=== PATIENT | female | born 1935 | race Caucasian/White ===

== ENCOUNTER 2017-02-11 03:02 | Emergency (ER) | payer MEDICARE ==
--- NOTE | 2017-02-11 03:47 | EDM.PDOC ---
ED HPI GENERAL MEDICAL PROBLEM - General Chief Complaint: Respiratory Problem Stated Complaint: [facility] Time Seen by Provider: 02/11/17 03:07 Source of Information: Reports: Patient, Family (), RN Notes Reviewed History Limitations: Reports: No Limitations - History of Present Illness INITIAL COMMENTS - FREE TEXT/NARRATIVE: The patient states that she has had a cough productive of yellowish sputum since 01/27/2017. She reports only slight dyspnea at rest and slight dyspnea on exertion. She reports slight wheezing. No recent fever. She is mainly concerned because the cough keeps her awake at night. She saw her PCP, Dr. Hernandez, on , 02/03/2017. She states her bloodwork was obtained, but she was diagnosed with a viral illness and no treatment was prescribed. She states that she has been taking [id number] Coricidin, recommended to her by a pharmacist. Since starting this, however, she notes that the mucus in her throat feels to be a thick, and she has difficulty bringing it up. The patient also reports feeling lightheaded for the past 7 days. The patient does not get influenza vaccines. - Related Data Allergies Allergy/AdvReac Type Severity Reaction Status Date / Time No Known Allergies Allergy Verified 02/11/17 03:05 Home Meds: Home Meds Antiox#10/Om3/DHA/EPA/Lut/Zeax [I-Caps with Lutein-[place] 3 SFG] 1 cap PO DAILY 02/11/17 [History] Aspirin [Halfprin] 81 mg PO BRK 02/11/17 [History] Calcium Carbonate/Vitamin D3 [Caltrate 600 Plus D3 Tablet] 1 cap PO DAILY [History] Indapamide 1.25 mg PO DAILY 02/11/17 [History] Labetalol HCl [Labetalol] 200 mg PO BID 02/11/17 [History] Levothyroxine 112 mcg PO ACBREAKFAST 02/11/17 [History] Loperamide HCl [Anti-Diarrheal] 2 mg PO ASDIRECTED PRN 02/11/17 [History] Losartan [Cozaar] 100 mg PO DAILY 02/11/17 [History] Multivits-Min/Iron/FA/Lutein [Centrum Silver Women Tablet] 1 each PO DAILY 02/11 [History] Omeprazole 20 mg PO DAILY 02/11/17 [History] glipiZIDE [Glucotrol XL] 5 mg PO BIDD 02/11/17 [History] Past Medical History HEENT History: Reports: Macular Degeneration Cardiovascular History: Reports: Hypertension Gastrointestinal History: Reports: GERD Genitourinary History: Reports: Urinary Incontinence (Stress incontinence) 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: Musculoskeletal History: Reports: Osteoarthritis Endocrine/Metabolic History: Reports: Diabetes, Type II, Hypothyroidism ( following thyroidectomy) Oncologic (Cancer) History: Reports: Thyroid - Past Surgical History GI Surgical History: Reports: Appendectomy Female Surgical History: Reports: Hysterectomy Endocrine Surgical History: Reports: Thyroidectomy Musculoskeletal Surgical History: Reports: Hip Replacement (left) Social & Family History - Tobacco Use Smoking Status *Q: Former Smoker Years of Tobacco use: 21 Packs/Tins Daily: 1 Month Tobacco Last Used: Quit 1981 Second Hand Smoke Exposure: No - Caffeine Use Caffeine Use: Reports: Soda - Alcohol Use Alcohol Use History: No - Recreational Drug Use Recreational Drug Use: No - Living Situation & Occupation Living situation: Reports: , with Spouse Occupation: Retired ED ROS GENERAL - Review of Systems Review Of Systems: ROS reveals no pertinent complaints other than HPI. Constitutional: Reports: No Symptoms HEENT: Reports: No Symptoms Respiratory: Reports: No Symptoms Cardiovascular: Reports: No Symptoms Endocrine: Reports: No Symptoms GI/Abdominal: Reports: No Symptoms : Reports: No Symptoms Musculoskeletal: Reports: No Symptoms Skin: Reports: No Symptoms Neurological: Reports: No Symptoms Psychiatric: Reports: No Symptoms Hematologic/Lymphatic: Reports: No Symptoms Immunologic: Reports: No Symptoms ED EXAM, GENERAL - Physical Exam Exam: See Below Exam Limited By: No Limitations General Appearance: Alert, WD/WN, No Apparent Distress Eye Exam: Bilateral Eye: Normal Inspection Ears: Normal External Exam, Hearing Grossly Normal Nose: Normal Inspection, No Blood Throat/Mouth: Normal Inspection, Normal Lips, Normal Voice, No Airway Compromise Head: Atraumatic, Normocephalic Neck: Normal Inspection, Full Range of Motion Respiratory/Chest: No Respiratory Distress, No Accessory Muscle Use, Rhonchi ( scattered) Cardiovascular: Normal Peripheral Pulses, Regular Rate, Rhythm, No Gallop, No JVD, No Murmur, No Rub Peripheral Pulses: 4+: Radial (L), Radial (R) GI/Abdominal: Normal Bowel Sounds, Soft, Non-Tender, No Organomegaly, No Distention, No Abnormal Bruit, No Mass (Female) Exam: Deferred Rectal (Female) Exam: Normal Exam, Normal Rectal Tone, Heme - Stool (light brown , liquidy) Back Exam: Normal Inspection, Full Range of Motion. No: CVA Tenderness (L), CVA Tenderness (R) Extremities: Normal Inspection, Normal Range of Motion, No Pedal Edema, Normal Capillary Refill Neurological: Alert, Oriented, Normal Cognition, No Motor/Sensory Deficits Psychiatric: Normal Affect Skin Exam: Warm, Dry, Intact, Normal Color, No Rash Course - Vital Signs Last Recorded V/S: Last Vital Signs Temp 36.3 C 02/11/17 03:03 Pulse 82 02/11/17 03:03 Resp 15 02/11/17 03:03 BP 124/61 02/11/17 03:03 Pulse Ox 95 02/11/17 03:03 Orthostatic Blood Pressure [ 119/43 Standing] Orthostatic Blood Pressure [ 98/55 Sitting] Orthostatic Blood Pressure [ 136/33 Supine] - Orders/Labs/Meds Orders: Active Orders 24 hr Category Date Time Status Hemoccult [Fecal Occult Blood Collection] [RC] Care 02/11/17 04:56 Active ASDIRECTED Orthostatic Vital Signs [RC] STAT Care 02/11/17 03:49 Active Orthostatic Vital Signs [RC] STAT Care 02/11/17 05:56 Active CULTURE BLOOD [BC] Stat Lab 02/11/17 06:30 Received CULTURE BLOOD [BC] Stat Lab 02/11/17 06:38 Received Levothyroxine Med 02/11/17 08:03 Once 112 mcg PO ONETIME ONE Blood Culture x2 Reflex Set [OM.PC] Stat Oth 02/11/17 05:57 Ordered Medication Orders Levothyroxine Sodium (Levothyroxine) 112 mcg PO ONETIME ONE Stop: 02/11/17 08:04 Labs: Laboratory Tests 02/11/17 02/11/17 02/11/17 Range/Units 04:10 04:10 04:10 WBC 12.20 H (3.98-10.04) K/mm3 RBC 2.03 L (3.98-5.22) M/mm3 Hgb 6.2 L* (11.2-15.7) gm/L Hct 20.8 L (34.1-44.9) % MCV 102.5 H (79.4-94.8) fl MCH 30.5 (25.6-32.2) pg MCHC 29.8 L (32.2-35.5) g/dl RDW Std Deviation 52.4 H (36.4-46.3) fL Plt Count 407 H (182-369) K/mm3 MPV 8.3 L (9.4-12.3) fl Neutrophils % (Manual) 90 H (40-60) % Band Neutrophils % 1 (0-10) % Lymphocytes % (Manual) 3 L (20-40) % Atypical Lymphs % 0 % Monocytes % (Manual) 5 (2-10) % Eosinophils % (Manual) 1 (0.7-5.8) % Basophils % (Manual) 0 L (0.1-1.2) Platelet Estimate Increased Plt Morphology Comment Normal Polychromasia 1+ slight Hypochromasia 1+ slight Poikilocytosis 2+ moderate Anisocytosis 2+ moderate Microcytosis 1+ slight Macrocytosis 2+ moderate Ovalocytes 1+ slight RBC Morph Comment Abnormal Percent Retic (0.50-1.70) % Sodium 135 L (136-145) mEq/L Potassium 5.1 (3.5-5.1) mEq/L Chloride 101 (98-107) mEq/L Carbon Dioxide 23 (21-32) mEq/L Anion Gap 16.1 H (5-15) BUN 28 H (7-18) mg/dL Creatinine 1.6 H (0.55-1.02) mg/dL Est Cr Clr Drug Dosing 25.65 mL/min Estimated GFR (MDRD) 31 (>60) mL/min BUN/Creatinine Ratio 17.5 (14-18) Glucose 178 H (83-115) mg/dL Calcium 8.6 (8.5-10.1) mg/dL Iron (50-170) ug/dL TIBC (100-400) ug/dL % Saturation (20-55) % Transferrin (202-364) mg/dL Ferritin (8-252) ng/ml Total Bilirubin 1.1 H (0.2-1.0) mg/dL AST 26 (15-37) U/L ALT 39 (14-59) U/L Alkaline Phosphatase 188 H (46-116) U/L Lactate Dehydrogenase 239 H (81-234) U/L Total Protein 6.6 (6.4-8.2) g/dl Albumin 2.8 L (3.4-5.0) g/dl Globulin 3.8 gm/dL Albumin/Globulin Ratio 0.7 L (1-2) Vitamin B12 (193-986) pg/ml Folate (8.6-58.9) ng/mL 02/11/17 02/11/17 Range/Units 04:10 04:10 WBC (3.98-10.04) K/mm3 RBC (3.98-5.22) M/mm3 Hgb (11.2-15.7) gm/L Hct (34.1-44.9) % MCV (79.4-94.8) fl MCH (25.6-32.2) pg MCHC (32.2-35.5) g/dl RDW Std Deviation (36.4-46.3) fL Plt Count (182-369) K/mm3 MPV (9.4-12.3) fl Neutrophils % (Manual) (40-60) % Band Neutrophils % (0-10) % Lymphocytes % (Manual) (20-40) % Atypical Lymphs % % Monocytes % (Manual) (2-10) % Eosinophils % (Manual) (0.7-5.8) % Basophils % (Manual) (0.1-1.2) Platelet Estimate Plt Morphology Comment Polychromasia Hypochromasia Poikilocytosis Anisocytosis Microcytosis Macrocytosis Ovalocytes RBC Morph Comment Percent Retic 2.74 H (0.50-1.70) % Sodium (136-145) mEq/L Potassium (3.5-5.1) mEq/L Chloride (98-107) mEq/L Carbon Dioxide (21-32) mEq/L Anion Gap (5-15) BUN (7-18) mg/dL Creatinine (0.55-1.02) mg/dL Est Cr Clr Drug Dosing mL/min Estimated GFR (MDRD) (>60) mL/min BUN/Creatinine Ratio (14-18) Glucose (83-115) mg/dL Calcium (8.5-10.1) mg/dL Iron 19 L (50-170) ug/dL TIBC 214 (100-400) ug/dL % Saturation 9 L (20-55) % Transferrin 171 L (202-364) mg/dL Ferritin 322 H (8-252) ng/ml Total Bilirubin (0.2-1.0) mg/dL AST (15-37) U/L ALT (14-59) U/L Alkaline Phosphatase (46-116) U/L Lactate Dehydrogenase (81-234) U/L Total Protein (6.4-8.2) g/dl Albumin (3.4-5.0) g/dl Globulin gm/dL Albumin/Globulin Ratio (1-2) Vitamin B12 1204 H (193-986) pg/ml Folate 24.1 (8.6-58.9) ng/mL Meds: Medications Generic Name Dose Route Start Last Admin Trade Name Freq PRN Reason Stop Dose Admin Levothyroxine Sodium 112 mcg 02/11/17 08:03 Levothyroxine PO 02/11/17 08:04 ONETIME ONE Discontinued Medications Generic Name Dose Route Start Last Admin Trade Name Freq PRN Reason Stop Dose Admin Sodium Chloride 1,000 mls @ 999 mls/hr 02/11/17 04:21 02/11/17 05:04 Normal Saline IV 02/11/17 05:21 999 mls/hr ONETIME ONE Administration Levofloxacin 750 mg 02/11/17 05:52 02/11/17 06:41 Levaquin PO 02/11/17 05:53 750 mg ONETIME STA Administration - Re-Assessments/Exams Free Text/Narrative Re-Assessment/Exam: 02/11/17 04:20 The patient's systolic blood pressure dropped by 20 mmHg between supine and standing, consistent with orthostasis. I will order 1 L normal saline bolus and recheck her orthostatics. 02/11/17 04:55 The patient's H/H has returned significantly depressed at 6.2/20.8. This was discussed with the patient. She states that she is aware that she is anemic, and that Dr. Hernandez has referred her to a Marketing Production Coordinator in [place]. She also mentions that she is adamant that she does not want to undergo a colonoscopy ever again. Based on the patient's low H/H, I performed a rectal examination, finding heme- negative stool. The patient's anemia is macrocytic and hypochromic, likely multifactorial. I have ordered an LDH, iron level, ferritin, TIBC, transferrin, iron saturation, reticulocyte count, folic acid level, and a vitamin B12 level, for further evaluation of the patient's anemia. I offered to transfuse PRBCs, however, the patient feels that the risk of transfusion outweighs the potential benefit, despite my reassurances to the contrary. She is refusing PRBC transfusion at this time. 02/11/17 04:58 Two-view chest radiograph reviewed. Cardiac silhouette is within normal limits. No pulmonary vascular congestion. No pleural effusions. There appears to be a left lower lobe infiltrate, however, malignancy cannot be excluded. No pneumothorax. Formal read per the Radiologist pending. 02/11/17 05:53 The patient's WBC count is mildly elevated at 12.20, although she only has 1% bandemia. Her chest radiograph, as above, indicates a left lower lobe infiltrate , although malignancy cannot be excluded. Current guidelines recommend treatment with an antibiotic, followed by repeat chest radiograph in approximately one month. If the infiltrate has not resolved, a high-resolution CT scan would be indicated. I have ordered Levaquin 750 mg po, with the intention of prescribing a five-day course. Blood cultures will be drawn prior to administration of the antibiotic. 02/11/17 07:00 The anemia studies indicate that the patient has significant iron deficiency, although her folic acid and vitamin B12 levels are adequate or even elevated. Iron deficiency would explain the patient's hypochromic, but not the macrocytosis, although this could be due to reticulocytosis. Despite an elevated reticulocyte count, however, the patient's reticulocyte index is depressed at 0.6%. This could be due to iron deficiency, although is likely contributed at least in part by the patient's renal insufficiency with resultant low erythropoietin. For today's purposes, I'm going to recommend that the patient start taking supplemental iron with vitamin C (to improve gastrointestinal absorption). I will encourage her to keep her appointment with the Marketing Production Coordinator. 02/11/17 07:04 Repeat orthostatics following 1 L NS are normal - the patient is no longer orthostatic. Today's workup finds that the patient has left lower lobe pneumonia, renal insufficiency (unknown if acute or chronic), and severe iron-deficient anemia. She appears to be very unsteady when ambulating to and from the bathroom, and her confirms that she has fallen at home. I'm therefore recommending admission to the hospital for further evaluation and treatment. 02/11/17 07:28 The above was discussed with the patient and her . The patient refuses to be admitted to this hospital, stating that her mother was admitted to this facility from a [facility], and found to be black and blue on one side. It was unclear if the bruises were from the [facility] or this facility, but the patient decided long ago that she would never be admitted here. The patient is, however, agreeable to being admitted to [facility]. She states that she was been admitted there previously, for her left total hip arthroplasty. Because the transfer would be for patient choice as opposed to medical necessity , she would have to pay for transfer cost, however, I do not object to the patient's driving the patient, if she is accepted. 02/11/17 07:[address] Iraheta, Hospitalist at [facility], at 07:35. He agrees to directly admit the patient. I will push the chest radiograph images. 02/11/17 07:49 The patient's states that he got only 2 hours of sleep last night. He spoke with his , and they have decided to pay for an ambulance to transfer her to [facility]. We will let [facility] know. Departure - Departure Time of Disposition: 07:45 Disposition: DC/Tfer to Acute Hospital 02 Condition: Fair Clinical Impression: Left lower lobe pneumonia, Severe anemia, Renal insufficiency, Orthostatic hypotension - Discharge Information Referrals: Paul Cole MD [Primary Care Provider] - - My Orders Last 24 Hours: My Active Orders 02/11/17 03:49 Orthostatic Vital Signs [RC] STAT 02/11/17 04:56 Hemoccult [Fecal Occult Blood Collection] [RC] ASDIRECTED 02/11/17 05:56 Orthostatic Vital Signs [RC] STAT 02/11/17 05:57 Blood Culture x2 Reflex Set [OM.PC] Stat 02/11/17 06:30 CULTURE BLOOD [BC] Stat 02/11/17 06:38 CULTURE BLOOD [BC] Stat 02/11/17 08:03 Levothyroxine 112 mcg PO ONETIME ONE - Assessment/Plan Last 24 Hours: My Active Orders 02/11/17 03:49 Orthostatic Vital Signs [RC] STAT 02/11/17 04:56 Hemoccult [Fecal Occult Blood Collection] [RC] ASDIRECTED 02/11/17 05:56 Orthostatic Vital Signs [RC] STAT 02/11/17 05:57 Blood Culture x2 Reflex Set [OM.PC] Stat 02/11/17 06:30 CULTURE BLOOD [BC] Stat 02/11/17 06:38 CULTURE BLOOD [BC] Stat 02/11/17 08:03 Levothyroxine 112 mcg PO ONETIME ONE
[2017-02-11] MEDS ORDERED: Sodium Chloride 0.9% 1,000 ML IV ONE (04:21)
[2017-02-11] MEDS ORDERED: Levofloxacin 750 MG Tab PO STA (05:52)
--- NOTE | 2017-02-11 07:40 | CR ---
Chest: Two views of the chest were obtained. Comparison: Prior chest CT of 04/19/12, no prior chest x-ray. Patchy areas of increased density are identified within the left mid and lower lung. Right lung is clear. Heart size at the upper limits of normal. Atherosclerotic change is seen within the aortic knob. Bony structures show mild degenerative change which is scattered within the spine. Impression: 1. Patchy areas of increased density within the left chest which are suspicious for pneumonia. Please correlate. Diagnostic code #3
[2017-02-11] MEDS ORDERED: Levothyroxine 112 MCG Tab PO ONE (08:03)
== END 2017-02-11 08:48 ==
LOC: JD.ED 03:02
DX: J18.9 Pneumonia, unspecified organism (principal); D64.9 Anemia, unspecified; I95.1 Orthostatic hypotension; N28.9 Disorder of kidney and ureter, unspecified; I10 Essential (primary) hypertension; K21.9 Gastro-esophageal reflux disease without esophagitis; E11.9 Type 2 diabetes mellitus without complications; E03.9 Hypothyroidism, unspecified; Z87.891 Personal history of nicotine dependence; Z79.84 Long term (current) use of oral hypoglycemic drugs; Z79.82 Long term (current) use of aspirin; Z79.899 Other long term (current) drug therapy
CPT/HCPCS: 36415; 71020; 80053; 82270; 82607; 82728; 82746; 83540; 83615; 84466; 85025; 85045; 87040; 87804; 96360; 96361; 99285; A9270; J7040

== ENCOUNTER 2019-09-18 00:36 | Emergency (ER) | payer MEDICARE ==
[2019-09-18] MEDS ORDERED: Alum Hydrox/Mag Hydrox/Simeth 30 ML, Lidocaine 2% 15 ML PO STA ×2 (01:06)
--- NOTE | 2019-09-18 01:11 | EDM.PDOC ---
ED HPI GENERAL MEDICAL PROBLEM - General Chief Complaint: Abdominal Pain Stated Complaint: CHEST/ABDOMINAL PAIN Time Seen by Provider: 09/18/19 00:49 Source of Information: Reports: Patient, Family () History Limitations: Reports: No Limitations - History of Present Illness INITIAL COMMENTS - FREE TEXT/NARRATIVE: Mrs. Perez is a very pleasant 84-year-old woman with a past medical history significant for GERD, treated with omeprazole for more than 5 years, who now presents to the ED stating that she has felt abdominal bloating all day, then, at 20:00 this evening, she developed burning epigastric pain that radiates up into her chest, causing chest tightness. No associated nausea, diaphoresis, dyspnea, or sense of impending doom. No vomiting or diarrhea. No recent fever. She states that her current symptoms feel similar to prior heartburn, except that her heartburn is always self-limiting, and this sensation is persistent. Her pain is constant, and she has not identified any modifiers. She states that she took 6 tablets of Gas-X, without any relief, although she did not take any antacids. Here in the ED, the patient's initial BP is found to be elevated at 162/59, otherwise, she is hemodynamically stable, afebrile, saturating 99% on room air. Other than tonight's symptoms, the patient denies recent fever, chills, sore throat, ear pain, nasal or sinus congestion, cough, dyspnea, palpitations, nausea, vomiting, constipation, diarrhea, urinary symptoms, recent weight gain or weight loss, recent bloody bowel movements or black bowel movements, recent joint aches, headaches, or rashes. The patient's PCP is Dr. Ismael Hernandez. Her Teaching Specialists is Dr. Aime Epperson. Abdomen Pain Score (Numeric/FACES): 7 - Related Data Allergies Allergy/AdvReac Type Severity Reaction Status Date / Time No Known Allergies Allergy Verified 09/18/19 00:50 Home Meds: Home Meds Antiox.mv No.10/Omeg3s/Lut/Caleb [I-Caps with Lutein-[place] 3 SFG] 1 cap PO DAILY 02/11/17 [History] Aspirin [Halfprin] 81 mg PO BRK 02/11/17 [History] Calcium Carbonate/Vitamin D3 [Caltrate 600 Plus D3 Tablet] 1 cap PO DAILY 02/11/17 [History] Indapamide 1.25 mg PO DAILY 02/11/17 [History] Labetalol HCl [Labetalol] 200 mg PO BID 02/11/17 [History] Levothyroxine 112 mcg PO ACBREAKFAST 02/11/17 [History] Loperamide HCl [Anti-Diarrheal] 2 mg PO ASDIRECTED PRN 02/11/17 [History] Losartan [Cozaar] 100 mg PO DAILY 02/11/17 [History] Multivit-Min/Iron/Folic/Lutein [Centrum Silver Women Tablet] 1 each PO DAILY 02/11/17 [History] Omeprazole 20 mg PO DAILY 02/11/17 [History] glipiZIDE [Glucotrol XL] 5 mg PO BIDD 02/11/17 [History] Past Medical History HEENT History: Reports: Macular Degeneration Cardiovascular History: Reports: Hypertension Gastrointestinal History: Reports: GERD Genitourinary History: Reports: Urinary Incontinence (stress incontinence) Musculoskeletal History: Reports: Osteoarthritis Endocrine/Metabolic History: Reports: Diabetes, Type II, Hypothyroidism (following thyroidectomy for thyroid CA) Oncologic (Cancer) History: Reports: Thyroid (s/p thyroidectomy) - Past Surgical History GI Surgical History: Reports: Appendectomy Endocrine Surgical History: Reports: Thyroid Biopsy, Thyroidectomy (for thyroid CA) Musculoskeletal Surgical History: Reports: Hip Replacement (left) Social & Family History - Tobacco Use Smoking Status *Q: Former Smoker Years of Tobacco use: 21 Packs/Tins Daily: 1 Month/Year Tobacco Last Used: Quit 1981 Second Hand Smoke Exposure: No - Caffeine Use Caffeine Use: Reports: Soda - Alcohol Use Alcohol Use History: No - Recreational Drug Use Recreational Drug Use: No - Living Situation & Occupation Living situation: Reports: , with Spouse Occupation: Retired ED ROS GENERAL - Review of Systems Review Of Systems: Comprehensive ROS is negative, except as noted in HPI. ED EXAM, GENERAL - Physical Exam Exam: See Below Exam Limited By: No Limitations General Appearance: Alert, WD/WN, No Apparent Distress Eye Exam: Bilateral Eye: EOMI, Normal Inspection Ears: Normal External Exam, Hearing Grossly Normal Nose: Normal Inspection Throat/Mouth: Normal Inspection, Normal Lips, Normal Voice, No Airway Compromise Head: Atraumatic, Normocephalic Neck: Normal Inspection, Full Range of Motion Respiratory/Chest: No Respiratory Distress, Lungs Clear, Normal Breath Sounds, No Accessory Muscle Use Cardiovascular: Normal Peripheral Pulses, Regular Rate, Rhythm, No Edema, No Gallop, No JVD, No Murmur, No Rub Peripheral Pulses: 3+: Radial (L), Radial (R) GI/Abdominal: Normal Bowel Sounds, Soft, No Organomegaly, No Distention, No Abnormal Bruit, No Mass, Tender (reproducible, to the epigastrium only, with no tenderness elsewhere) (Female) Exam: Deferred Rectal (Female) Exam: Deferred Back Exam: Normal Inspection, Full Range of Motion, NT Extremities: Normal Inspection, Normal Range of Motion, No Pedal Edema, Normal Capillary Refill Neurological: Alert, Oriented, Normal Cognition, No Motor/Sensory Deficits Psychiatric: Normal Affect Skin Exam: Warm, Dry, Intact, Normal Color, No Rash EKG INTERPRETATION EKG Date: 09/18/19 Time: 00:57 Rhythm: NSR Rate (Beats/Min): 74 [place]: Normal P-Wave: Present (1st degree AVB) QRS: RBBB (incomplete) ST-T: Normal QT: Prolonged (QTc 484 ms) Comparison: NA - No Prior EKG Course - Vital Signs Last Recorded V/S: Last Vital Signs Temp 36.4 C 09/18/19 00:47 Pulse 71 09/18/19 02:50 Resp 14 09/18/19 02:50 BP 162/59 H 09/18/19 00:47 Pulse Ox 96 09/18/19 02:50 - Orders/Labs/Meds Orders: Active Orders 24 hr Category Date Time Status EKG Documentation Completion [RC] STAT Care 09/18/19 01:06 Active Chest 2V [CR] Stat Exams 09/18/19 01:06 Taken Labs: Laboratory Tests 09/18/19 09/18/19 09/18/19 Range/Units 01:21 01:21 01:21 WBC 6.38 (3.98-10.04) K/mm3 RBC 3.17 L (3.98-5.22) M/mm3 Hgb 9.9 L (11.2-15.7) gm/dl Hct 32.1 L (34.1-44.9) % MCV 101.3 H (79.4-94.8) fl MCH 31.2 (25.6-32.2) pg MCHC 30.8 L (32.2-35.5) g/dl RDW Std Deviation 44.6 (36.4-46.3) fL Plt Count 159 L (182-369) K/mm3 MPV 8.4 L (9.4-12.3) fl Neutrophils % (Manual) 81 H (40-60) % Band Neutrophils % 4 (0-10) % Lymphocytes % (Manual) 13 L (20-40) % Atypical Lymphs % 0 % Monocytes % (Manual) 2 (2-10) % Eosinophils % (Manual) 0 L (0.7-5.8) % Basophils % (Manual) 0 L (0.1-1.2) Platelet Estimate Adequate Anisocytosis Sl Macrocytosis Few Ovalocytes Few RBC Morph Comment Abnormal D-Dimer, Quantitative 0.72 H (0.19-0.50) mg/L Sodium 141 (136-145) mEq/L Potassium 4.2 (3.5-5.1) mEq/L Chloride 106 (98-107) mEq/L Carbon Dioxide 23 (21-32) mEq/L Anion Gap 16.2 H (5-15) BUN 31 H (7-18) mg/dL Creatinine 1.2 H (0.55-1.02) mg/dL Est Cr Clr Drug Dosing 32.52 mL/min Estimated GFR (MDRD) 43 (>60) mL/min BUN/Creatinine Ratio 25.8 H (14-18) Glucose 261 H (83-115) mg/dL Calcium 8.6 (8.5-10.1) mg/dL Total Bilirubin 1.3 H (0.2-1.0) mg/dL AST 24 (15-37) U/L ALT 28 (14-59) U/L Alkaline Phosphatase 82 (46-116) U/L Troponin I 0.026 (0.00-0.056) ng/mL Total Protein 6.9 (6.4-8.2) g/dl Albumin 4.0 (3.4-5.0) g/dl Globulin 2.9 gm/dL Albumin/Globulin Ratio 1.4 (1-2) Lipase 162 (73-393) U/L Meds: Medications Discontinued Medications Generic Name Dose Route Start Last Admin Trade Name Freq PRN Reason Stop Dose Admin Al Hydroxide/Mg Hydroxide 30 0 ml 09/18/19 01:06 09/18/19 01:12 ml/ Lidocaine HCl 15 ml PO 09/18/19 01:07 45 ml ONETIME STA Administration Famotidine 40 mg 09/18/19 02:43 09/18/19 02:56 Pepcid PO 09/18/19 02:44 40 mg ONETIME STA Administration - Re-Assessments/Exams Free Text/Narrative Re-Assessment/Exam: 09/18/19 01:08 As above, the patient felt bloated all day, then developed burning epigastric pain that radiates up into her chest, causing her chest to feel tight, around 20:00 this evening. No other symptoms. She took Gas-X, which provided no relief, but she did not take any antacids. On physical exam, she has reproducible tenderness to her epigastrium, but no tenderness elsewhere. Her ECG, obtained at triage, shows no ischemic changes. The patient's history and physical exam are most consistent with GERD, despite the fact that the patient has been taking Prilosec for more than 5 years. I have ordered a work-up that includes blood work and a chest x-ray, but in the meantime, the patient will be given a GI cocktail to see if that has any effect on her symptoms. 09/18/19 01:41 Two-view chest radiograph reviewed. The cardiac silhouette is within normal limits. No pulmonary vascular congestion. No pleural effusions. No focal infiltrate. No pneumothorax. There is a hazy opacity, possibly a pulmonary nodule, in the left lower lung periphery. Formal read per the Radiologist pending. 09/18/19 02:37 The patient's CBC is remarkable for a H/H mildly depressed at 9.9/32.1, with platelets depressed at 159,000. The remainder of her CBC is unremarkable. Her CMP is remarkable for an anion gap slightly elevated at 16.2, but with a bicarbonate normal at 23. Her BUN/Cr are elevated at 31/1.2, and her blood glucose is elevated at 261. Her TBil is mildly elevated at 1.3, with the remainder of her CMP being unremarkable. Her lipase is within normal limits at 162. Her troponin is within normal limits at 0.026. Her D-dimer is slightly elevated at 0.72. 09/18/19 02:43 Test results discussed with the patient and her . She states that the GI cocktail gave her substantial relief, and she is currently feeling much better. Based on this, along with her otherwise unremarkable work-up, I suspect that her pain is due to GERD, and that her current PPI, omeprazole, has stopped working for her. I will start her on oral famotidine, with the recommendation that she take 1 tablet of famotidine twice a day for the next few days, and at the same time, begin taking a new PPI, such as [id number] Nexium. After a few days of overlap of famotidine and Nexium, she can discontinue the famotidine. The patient expressed understanding. Departure - Departure Time of Disposition: 02:45 Disposition: Home, Self-Care 01 Condition: Good Clinical Impression: GERD (gastroesophageal reflux disease) - Discharge Information *PRESCRIPTION DRUG MONITORING PROGRAM REVIEWED*: Not Applicable *COPY OF PRESCRIPTION DRUG MONITORING REPORT IN PATIENT SHAINA: Not Applicable Instructions: Gastroesophageal Reflux Disease, Adult, [id number] Referrals: Ismael Hernandez MD [Primary Care Provider] - Aime Epperson MD [Consulting Physician] - Forms: ED Department Discharge Additional Instructions: You were seen in the emergency room after feeling bloated all day, then developing upper abdominal pain that radiated into your chest. Work-up in the ER included blood work, chest x-ray, and an ECG. Your work-up found that you have mild anemia, and mild renal insufficiency. Your blood sugar was found to be elevated at 261. The remainder of your work-up was unremarkable. You had significant improvement of your symptoms following a GI cocktail, strongly indicating that your symptoms are due to GERD, despite the fact that you have been taking omeprazole for more than 5 years. In many patients, proton pump inhibitor such as omeprazole simply stop working one day. We recommend that you switch to a different proton pump inhibitor, such as [id number] Nexium. Proton pump inhibitors, including Nexium, usually take about 3 days before they begin working properly. During that time, we recommend that you take an H2 angel, such as famotidine (Pepcid). Generic famotidine is just as good as the brand-name Pepcid. We recommend that you take 1 tablet of famotidine twice a day, for 3 days, while at the same time taking your new proton pump inhibitor. After a few days of overlap, you can discontinue the famotidine. If your symptoms persist despite this approach, please follow-up with your PCP, Dr. Hernandez, for further evaluation. If any other problems, please do not hesitate to return to the ER. Sepsis Event Note (ED) - Evaluation Sepsis Screening Result: No Definite Risk - Focused Exam Vital Signs: Vital Signs Temp Pulse Resp BP Pulse Ox 09/18/19 02:50 71 14 96 09/18/19 00:47 36.4 C 79 16 162/59 H 99 - My Orders Last 24 Hours: My Active Orders 09/18/19 01:06 EKG Documentation Completion [RC] STAT Chest 2V [CR] Stat - Assessment/Plan Last 24 Hours: My Active Orders 09/18/19 01:06 EKG Documentation Completion [RC] STAT Chest 2V [CR] Stat
[2019-09-18] MEDS ORDERED: Famotidine 20 MG Tab PO STA (02:43)
--- NOTE | 2019-09-18 06:44 | CR ---
Chest: 2 views of the chest were obtained. Comparison: Prior chest x-ray of 02/11/[address] study of 04/19/12. Nodule is noted within the left base which correlates to a calcified granuloma on chest CT. Blunting of the lateral left costophrenic angle is seen believed to be chronic. No acute parenchymal change is seen. Heart size at the upper limits of normal. Atherosclerotic calcification is noted within the aortic knob. Scattered degenerative change is noted within the spine. Minimal scoliosis is seen. Impression: 1. Findings as noted above. 2. Nothing acute is appreciated. Diagnostic code #2 This report was dictated in MDT
== END 2019-09-18 03:05 | disposition home or self-care (01) ==
LOC: JD.ED 00:36
DX: K21.9 Gastro-esophageal reflux disease without esophagitis (principal); I10 Essential (primary) hypertension; M19.90 Unspecified osteoarthritis, unspecified site; E11.9 Type 2 diabetes mellitus without complications; E03.9 Hypothyroidism, unspecified; Z79.82 Long term (current) use of aspirin; Z79.899 Other long term (current) drug therapy; Z87.891 Personal history of nicotine dependence
CPT/HCPCS: 36415; 71046; 80053; 83690; 84484; 85007; 85027; 85379; 93005; 99284; A9270; 93010; 99283